=== PATIENT | male | born 1995 | race Two or more races ===

== ENCOUNTER 2019-07-29 16:41 | Inpatient (IN) | payer MEDICAID, OTHER ==
[~2019-07-29] VITALS: Ht 182.9 cm; Wt 92.2 kg
[2019-07-29] MEDS ORDERED: BUPR100 PO (16:56)
[2019-07-29] MEDS ORDERED: ESTR-95 PO (16:56)
[2019-07-29] MEDS ORDERED: SPIR25 PO (16:56)
[2019-07-29 17:21] LABS: EOSINOPHILS % (AUTO) 2.7 % (1.0-6.0); HEMATOCRIT 43.3 % (41-53); HEMOGLOBIN 14.8 g/dL (13.5-17.5); LYMPHOCYTES # (AUTO) 1.9 K/uL (1.0-4.8); LYMPHOCYTES % (AUTO) 23.7 % (22.0-44.0); MEAN CORPUSCULAR HEMOGLOBIN 30.8 pg (26.0-34.0); MEAN CORPUSCULAR HGB CONC 34.1 G/dL (31.0-37.0); MEAN CORPUSCULAR VOLUME 90 fL (80-100); MONOCYTES # (AUTO) 0.7 K/uL (0.1-1.0); MONOCYTES % (AUTO) 8.7 % (2.0-9.0); NEUTROPHILS # (AUTO) 5.1 K/uL (1.8-7.7); NEUTROPHILS % (AUTO) 63.9 % (40.0-70.0); PLATELET COUNT (AUTO) 283 K/uL (150-450); RED CELL DISTRIBUTION WIDTH 12.4 % (11.5-14.5)
[2019-07-29 17:31] LABS: AMPHET/METH SCREEN,URINE NEGATIVE (NEGATIVE); BARBITURATE SCREEN, URINE NEGATIVE (NEGATIVE); BENZODIAZEPINES SCREEN,URINE NEGATIVE (NEGATIVE); CANNABINOID SCREEN,URINE NEGATIVE (NEGATIVE); COCAINE SCREEN,URINE NEGATIVE (NEGATIVE); METHADONE SCREEN, URINE NEGATIVE (NEGATIVE); OPIATE SCREEN,URINE NEGATIVE (NEGATIVE)
[2019-07-29 17:32] LABS: ANION GAP 11 mmol/L (8-16); CALCIUM, TOTAL 9.4 mg/dL (8.8-10.5); CARBON DIOXIDE 25 mmol/L (22-29); CHLORIDE 100 mmol/L (98-107); CREATININE 1.17 mg/dL (0.60-1.30); GLOMERULAR FILTR. RATE CALC > 60 mL/min (>60); GLUCOSE,RANDOM 109 mg/dL (70-110); POTASSIUM 4.1 mmol/L (3.5-5.1); SODIUM SERUM 136 mmol/L (136-145); UREA NITROGEN, BLOOD 8 mg/dL (7-18)
[2019-07-29 17:35] LABS: PHENCYCLIDINE SCREEN,URINE NEGATIVE (NEGATIVE)
[2019-07-29 17:37] LABS: ALANINE AMINOTRANSFERASE 15 U/L (12-78); ALBUMIN 4.2 g/dL (3.4-5.0); ALKALINE PHOSPHATASE 62 U/L (46-116); ASPARTATE AMINOTRANSFERASE 13 U/L (15-37); BILIRUBIN,TOTAL 0.5 mg/dL (0.1-1.0); TOTAL PROTEIN, SERUM 7.6 g/dL (6.4-8.2)
[2019-07-29] MEDS ORDERED: HALOPERIDOL 5 MG TABLET PO ONE (18:15)
[2019-07-29] MEDS ORDERED: DiphenhydrAMINE HCL 25 MG CAPSULE PO ONE (18:15)
[2019-07-29] MEDS ORDERED: LORazepam 2 MG TABLET PO ONE (18:15)
[2019-07-29] MEDS ORDERED: ZOLPIDEM TARTRATE 10 MG TABLET PO PRN (18:30)
[2019-07-29] MEDS ORDERED: LORazepam 2 MG TABLET PO PRN (18:30)
[2019-07-29] MEDS ORDERED: HALOPERIDOL 5 MG TABLET PO PRN (18:30)
[2019-07-29 21:57] VITALS: BP 129/74
[2019-07-30] MEDS ORDERED: SPIRONOLACTONE 25 MG TABLET PO SCH (09:00)
[2019-07-30] MEDS ORDERED: ESTRADIOL 1 MG TABLET PO SCH (09:00)
[2019-07-30] MEDS ORDERED: SPIR50 PO (09:06)
[2019-07-30] MEDS ORDERED: BUPR-93 PO (09:08)
[2019-07-30 09:41] VITALS: BP 141/81
[2019-07-30] MEDS ORDERED: CloNIDine HCL 0.1 MG TABLET PO PRN (10:00)
[2019-07-30] MEDS ORDERED: ALBUTEROL SULFATE HFA 90 MCG/PUFF 8 GM INHALER IH PRN (10:00)
[2019-07-30] MEDS ORDERED: MAGNESIUM HYDROXIDE SUSPENSION 30 ML UDCUP PO PRN (10:00)
[2019-07-30] MEDS ORDERED: ACETAMINOPHEN 325 MG TABLET PO PRN (10:00)
[2019-07-30] MEDS ORDERED: DOCUSATE SODIUM 100 MG CAPSULE PO PRN (10:00)
[2019-07-30] MEDS ORDERED: NICOTINE 14 MG/24 HOUR PATCH TD PRN (10:00)
[2019-07-30] MEDS ORDERED: IBUPROFEN 400 MG TABLET PO PRN (10:00)
[2019-07-30] MEDS ORDERED: LOPERAMIDE HCL 2 MG CAPSULE PO PRN (10:00)
[2019-07-30] MEDS ORDERED: PETROLATUM,WHITE 28 GM JELLY TP PRN (10:00)
[2019-07-30] MEDS ORDERED: MAG HYDROX/AL HYDROX/SIMETH ES 30 ML SUSPENSION UDCUP PO PRN (10:00)
[2019-07-30] MEDS ORDERED: ONDANSETRON HCL 4 MG TABLET PO PRN (10:00)
[2019-07-30] MEDS ORDERED: GuaiFENesin/D-METHORPHAN [SUGAR-FREE] 200-20MG/10 ML SYRUP UDCUP PO PRN (10:00)
[2019-07-30] MEDS: ARIPiprazole 5 MG TABLET PO SCH ×2 (10:05→12:19)
[2019-07-30] MEDS: ESTRADIOL 1 MG TABLET PO SCH ×3 (10:05→12:20)
[2019-07-30] MEDS: BuPROPion HCL XL 150 MG ER TABLET PO SCH ×2 (10:05→12:19)
[2019-07-30] MEDS: SPIRONOLACTONE 50 MG TABLET PO SCH ×2 (11:28→12:20)
[2019-07-30 16:30] VITALS: BP 117/68
[2019-07-31 08:19] VITALS: BP 136/84
[2019-07-31] MEDS: BuPROPion HCL XL 150 MG ER TABLET PO SCH (08:48)
[2019-07-31] MEDS: ESTRADIOL 1 MG TABLET PO SCH (08:49)
[2019-07-31] MEDS: SPIRONOLACTONE 50 MG TABLET PO SCH (08:49)
[2019-07-31] MEDS: ARIPiprazole 5 MG TABLET PO SCH (08:49)
[2019-07-31 16:18] VITALS: BP 120/72
[2019-08-01 08:11] VITALS: BP 132/90
[2019-08-01] MEDS ORDERED: ARIPiprazole 10 MG TABLET PO SCH (09:00)
[2019-08-01] MEDS: BuPROPion HCL XL 150 MG ER TABLET PO SCH (09:09)
[2019-08-01] MEDS: SPIRONOLACTONE 50 MG TABLET PO SCH (09:09)
[2019-08-01] MEDS: ESTRADIOL 1 MG TABLET PO SCH (09:10)
[2019-08-01] MEDS ORDERED: BUPR-47 PO (13:36)
[2019-08-01] MEDS ORDERED: ARIP10TA8 PO ×2 (13:36→14:51)
== END 2019-08-01 18:30 | disposition home or self-care (01) | DRG 751 ==
LOC: EMS 16:45 → 3EI 20:09
DX: F33.3 Major depressive disorder, recurrent, severe with psychotic symptoms (principal); R45.851 Suicidal ideations; F43.12 Post-traumatic stress disorder, chronic; F64.9 Gender identity disorder, unspecified; K59.00 Constipation, unspecified; Z79.899 Other long term (current) drug therapy; Z91.5 Personal history of self-harm; R01.1 Cardiac murmur, unspecified; R03.0 Elevated blood-pressure reading, without diagnosis of hypertension
CPT/HCPCS: G0480